=== PATIENT | female | born 1990 | race Caucasian/White ===

== ENCOUNTER 2017-03-17 16:02 | Emergency (ER) | payer OTHER ==
[2017-03-17 17:02] LABS: BASO % 0.2 % (0.1-1.2); EOS # 0.3 10_X3_uL (0.0-0.4); EOS % 3.9 % (0.7-5.8); GRAN # 5.5 10_X3_uL (1.6-6.1); GRAN % 65.1 % (34.0-71.1); HEMATOCRIT 39.4 % (34-45); HEMOGLOBIN 13.2 g/dL (11.2-15.7); LYMPH # 2.2 10_X3_uL (1.2-3.7); LYMPH % 26.1 % (19.3-51.7); MEAN CORPUSCULAR HEMOGLOBIN 28.8 pg (27.0-33.0); MEAN CORPUSCULAR HGB CONC 33.5 g/dL (32.0-36.0); MEAN CORPUSCULAR VOLUME 85.8 fL (79-95); MEAN PLATELET VOLUME 11.5 fl (7.5-11.5); MONO # 0.4 10_X3_uL (0.2-0.9); MONO % 4.7 % (4.7-12.5); PLATELET COUNT 245 x10_3/uL (182-369); RED BLOOD COUNT 4.59 x10_6/uL (3.9-5.2); RED CELL DISTRIBUTION WIDTH 13.4 % (11.7-14.4); WHITE BLOOD COUNT 8.4 x10_3/uL (4.0-10.0)
[2017-03-17 17:21] LABS: ALBUMIN 4.4 gm/dL (3.4-5.0); ALKALINE PHOSPHATASE 73 U/L (50-136); ALT/SGPT 15 U/L (3.5-33.9); AMYLASE 47 U/L (15.62-74.58); AST/SGOT 16 U/L (7.04-26.96); BILIRUBIN,TOTAL 0.41 mg/dL (0.0-1.0); BLOOD UREA NITROGEN 9 mg/dL (7-18); CALCIUM 9.2 mg/dL (8.7-10.7); CARBON DIOXIDE 25 mmol/L (21-32); CREATININE 0.7 mg/dL (0.6-1.3); GLUCOSE,RANDOM 91 mg/dL (70-99); LIPASE 36 U/L (6.75-60.75); POTASSIUM 3.9 mmol/L (3.5-5.1); SODIUM 138 mmol/L (136-145); TOTAL PROTEIN 7.3 gm/dL (6.4-8.2)
[2017-03-17 17:30] LABS: URINE BILIRUBIN NEGATIVE (NEGATIVE); URINE BLOOD TRACE (NEGATIVE); URINE GLUCOSE (UA) NORMAL (NORMAL); URINE KETONE NEGATIVE (NEGATIVE); URINE LEUKOCYTE ESTERASE TRACE (NEGATIVE); URINE NITRATE NEGATIVE (NEGATIVE); URINE PROTEIN NEGATIVE (NEGATIVE)
[2017-03-17 17:39] LABS: URINE RBC 0-5 /[HPF] (0-2); URINE SQUAMOUS EPITHELIAL CELL >20 /[HPF] (NONE SEEN); URINE WBC 0-5 /[HPF] (0-5)
== END 2017-03-17 20:14 | disposition home or self-care (01) ==
LOC: ER 16:02
PROVIDERS: Emergency Medicine
DX: R10.11 Right upper quadrant pain (principal); L76.82 Other postprocedural complications of skin and subcutaneous tissue; S31.105A Unspecified open wound of abdominal wall, periumbilic region without penetration into peritoneal cavity, initial encounter; Z98.890 Other specified postprocedural states; J06.9 Acute upper respiratory infection, unspecified; F17.210 Nicotine dependence, cigarettes, uncomplicated; J32.9 Chronic sinusitis, unspecified
CPT/HCPCS: 36415; 80053; 81001; 82150; 83690; 85025; 99070; 99284-25